=== PATIENT | male | born 1945 | race Caucasian/White ===

== ENCOUNTER 2017-12-09 08:45 | Day surgery (SDC) | payer OTHER ==
[~2017-12-09] VITALS: Ht 188 cm; Wt 86.2 kg
--- NOTE | 2017-12-09 06:31 | Anethesia Preoperative Eval ---
Anesthesia Pre-op PMH/ROS General Date of Evaluation: Dec 09, 2017 Time of Evaluation: 06:30 Anesthesiologist: deniz ASA Score: ASA 3 Mallampati Score Class I : Soft palate, uvula, fauces, pillars visible Class II: Soft palate, uvula, fauces visible Class III: Soft palate, base of uvula visible Class IV: Only hard plate visible Mallampati Classification: Class II Surgeon: eyad Diagnosis: gerd Surgical Procedure: egd Anesthesia History: none Social History: smoking - former smoker Family History: no anesthesia problems Allergies: Coded Allergies: No Known Allergies (Unverified , 12/08/17) Medications: see eMAR Past Medical History Cardiovascular: Reports: HTN Neurologic/Psychiatric: Reports: depression/anxiety HEENT: Reports: cataract (R) PSxH Narrative: appendectomy, left knee arthroscopy Anesthesia Pre-op Phys. Exam Physician Exam Constitutional: NAD Neurologic: CN 2-12 intact Cardiovascular: RRR Respiratory: CTA Gastrointestinal: S/NT/ND Airway Exam Mallampati Score: Class II MO: full Neck: flexible TMD: 2fb ROM: full Teeth: missing Anesthesia Pre-op A/P Risk Assessment & Plan Assessment: asa3 Plan: mac Status Change Before Surgery: No Pre-Antibiotics Drug: Sita Marsh MD Dec 09, 2017 06:31
[~2017-12-09 08:45] MED LIST: Atropine Inj 1mg/10ml Syr IV PRN; DiphenhydrAMINE 50mg/ml Inj IVP PRN; LR 1000ml 1,000 ML IVLG SCH; Midazolam 2mg/2ml Inj IVP PRN; fentaNYL 100 mcg/2 mL IV PRN
[2017-12-09] MEDS ORDERED: Lidocaine 1% MPF 10mg/ml 5ml ONE (09:00)
[2017-12-09] MEDS ORDERED: LR 1000ml ONE (09:00)
[2017-12-09] MEDS ORDERED: Propofol 200mg/20ml IV ONE (09:00)
--- NOTE | 2017-12-09 09:04 | Short Stay Surgery H&P ---
History of Present Illness History of Present Illness Chief Complaint History of Peptic ulcer/Upper GI bleed CLIF Maria is a 72 year old male who was admitted on for GERDS/Peptic Ulcer and history of upper GI. Bleed. Patient History Allergies: Coded Allergies: No Known Allergies (Unverified , 12/08/17) PAST MEDICAL HISTORY: (1) Hypertension (2) History of appendectomy (3) H/O left knee surgery (4) History of carpal tunnel surgery Review of Systems Cardiovascular: Reports: no symptoms Respiratory: Reports: no symptoms Skeletal: Reports: trauma Gastrointestinal: Reports: gastro esophageal reflux disease Genitourinary: Reports: no symptoms Neurologic: Reports: no symptoms Endocrine: Reports: no symptoms Hematologic: Reports: no symptoms Physical Exam Skin: normal HENT: normal Heart: normal Lungs: normal Abdomen: abnormal Extremities: normal Genitourinary: normal Plan Plan of Care Upper Gi endoscopy Preop Interventions R/O Peptic ulcer Summary of Findings See the reports Attestation Are the patient's medical conditions optimized for surgery? Attestation Response: yes Lisa Victoria MD Dec 09, 2017 09:04
--- NOTE | 2017-12-09 09:05 | Pre-Procedure Note/Attestation ---
Pre-Procedure Note/Attestation Complete Prior to Procedure Planned Procedure: left Procedure Narrative: Upper GI examination by endoscope Indications for Procedure Pre-Operative Diagnosis: R/O Peptic ulcer/gastritis Attestation I attest that I discussed the nature of the procedure; its benefits; risks and complications; and alternatives (and the risks and benefits of such alternatives ), prior to the procedure, with the patient (or the patient's legal underwriting sales representative). I attest that, if there was a reasonable possibility of needing a blood transfusion, the patient (or the patient's legal underwriting sales representative) was given the [facility] standardized written summary, pursuant to the [place] Blood Safety Act ([place] Health and Safety Code # 1645, as amended). I attest that I re-evaluated the patient just prior to the surgery and that there has been no change in the patient's H&P, except as documented below: Lisa Victoria MD Dec 09, 2017 09:05
[2017-12-09 09:18] VITALS: BP 155/87
[2017-12-09] MEDS ORDERED: LISINOPRIL2.5 MG ORAL (09:26)
--- NOTE | 2017-12-09 09:47 | Endoscopy Procedure Note ---
Endoscopy Procedure Note General Indication for Procedure: Abdominal pains, history of bleeding peptic ulcer Procedures Performed: EGD - Completely normal upper GI endoscopy as a random biopsy also obtained from gastric body. Specimen: yes Pt Tolerated Procedure Well: Yes Estimated Blood Loss: none Anesthesia Anesthesiologist: Dr. Xiao Anesthesia: moderate sedation Medications Medication Given: see anesthesia record Inserted Devices Implant(s) used?: No Quality Quality of Bowel Preparation: Excellent GI Core Measures 50 yrs or older w/o bx or poly: Not Applicable 10yrs. F/U not recommended: Not Applicable If not recommended, why?: Med reason:<3 yrs.: System Reason:<3 yrs.: Lisa Victoria MD Dec 09, 2017 09:47
--- NOTE | 2017-12-09 09:48 | Discharge Instructions ---
Discharge Instructions Discharge Instructions Follow up with: Visit the doctor in office after two weeks. For Congestive Heart Failure Reminder Report to your physician any weight gain of 5 pounds or more in one week. Lisa Victoria MD Dec 09, 2017 09:47
[2017-12-09 09:49] VITALS: BP 144/78
[2017-12-09 09:54] VITALS: BP 164/93
[2017-12-09 09:59] VITALS: BP 143/95
[2017-12-09 10:10] VITALS: BP_SYST 143; BP_SYST 161; BP_DIAS 90; BP_DIAS 95
--- NOTE | 2017-12-09 10:17 | Immediate Post-Op Evaluation ---
Immediate Post-Op Evalulation Immediate Post-Op Evalulation Procedure: egd w/bx Date of Evaluation: Dec 09, 2017 Time of Evaluation: 10:01 IV Fluids: 350ml lr Blood Products: none Estimated Blood Loss: negligible Blood Pressure Systolic: 144 Blood Pressure Diastolic: 73 Pulse Rate: 74 Respiratory Rate: 18 O2 Sat by Pulse Oximetry: 100 Temperature (Fahrenheit): 97.4 Pain Score (1-10): 0 Nausea: No Vomiting: No Complications none Patient Status: awake, reacts, patent Hydration Status: adequate Drug: Sita Marsh MD Dec 09, 2017 10:17
--- NOTE | 2017-12-09 10:19 | 48 Hour Post Anesthesia Eval ---
Post Anesthesia Evaluation Procedure: egd w/bx Date of Evaluation: Dec 09, 2017 Time of Evaluation: 10:03 Blood Pressure Systolic: 150 0: 75 Pulse Rate: 74 Respiratory Rate: 18 Temperature (Fahrenheit): 97.4 O2 Sat by Pulse Oximetry: 100 Airway: patent Nausea: No Vomiting: No Pain Intensity: 0 Hydration Status: adequate Cardiopulmonary Status: stable Mental Status/LOC: patient returned to baseline Post-Anesthesia Complications: none Follow-up care needed: N/A Sita Mcclelland MD Dec 09, 2017 10:19
[2017-12-09 10:40] VITALS: BP 152/93
--- NOTE | 2017-12-09 13:00 | Pre-op HX & Phy Repo 2 SIG ---
DATE OF ADMISSION: 12/09/2017 HISTORY OF PRESENT ILLNESS: The patient is a 72-year-old gentleman who is being seen at this time prior to undergoing the procedure for upper GI endoscopy and this evaluation is being done to evaluate the patient for being his readiness for undergoing procedure for upper GI endoscopy as it also requires anesthesia. The applicant was seen in my office approximately 5 to 6 months ago as he had been referred for evaluation of his abdominal pain as he was complaining of history of peptic ulcer disease and upper GI bleeding that he had developed subsequent to his work injury as he had been prescribed multiple medications including nonsteroidal anti-inflammatory agents. At this point, the applicant does complain of some abdominal pain, mostly upper part of the abdomen. He reports that he has been having symptoms of gastroesophageal reflux in the past, but however the major concern for this patient has been that he had upper GI bleeding for which he was hospitalized at one time and found to have peptic ulcer disease with bleeding and was treated and subsequently received another upper GI endoscopy, which revealed evidence of improvement and healing of his ulcer. As I mentioned, the applicant does have mild heartburn; however, he denies having any difficulty swallowing problems, etc. He reported to me that in the past he was taking significant numbness of medications including strong analgesics and anti-inflammatory agents. He denied having any peptic ulcer disease or bleeding or GI condition being injured at job site. 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 Also, he started to have low back pain and carpal tunnel syndrome as well. He reports that the during this job he has been doing the functional grinding the tools and sharpening them with cutting metals. PAST MEDICAL HISTORY: The applicant has had history of hypertension as I mentioned bleeding, peptic ulcer. PAST SURGICAL HISTORY: He reports that he has had the left knee surgery with bilateral carpal tunnel surgery, hiatal hernia operation, and appendectomy. ALLERGIES: None significant. HABITS: The applicant denies drinking alcohol and he does not smoke cigarettes. CURRENT MEDICATIONS: Multivitamins, Prilosec 20 mg, and losartan hydrochlorothiazide 100/25 mg once daily. REVIEW OF SYSTEMS: Basically history of present illness. He has reported to me that he does have anxiety and depression about his environmental situations at home at this time. Otherwise, he denies any chest pain, shortness of breath, cough, urinary problems, etc. PHYSICAL EXAMINATION: GENERAL: At this time reveals alert, oriented, very pleasant gentleman, does not seem to be in any acute distress. He responds adequately to questions. VITAL SIGNS: Stable. HEENT: Normocephalic. Pupils equal in size and reactive to light and accommodation. No visible jaundice. Buccal cavity, tongue midline, well hydrated. NECK: Supple. No JVD, thyromegaly, or adenopathy. CHEST: Clear to auscultation and percussion. No rales or rhonchi. HEART: S1 and S2 normal. Regular rhythm. No gallops or murmur. ABDOMEN: Soft, minimally tender at the umbilical area and the upper part of the abdomen, but not significant. Overall, there is no hepatosplenomegaly. Bowel sounds are present. No masses noted. EXTREMITIES: Unremarkable. CENTRAL NERVOUS SYSTEM: Grossly normal. SKIN AND LYMPHATICS: Nonsignificant. PRELIMINARY PREOPERATIVE IMPRESSION: 1. Abdominal pain with a history of upper gastrointestinal bleeding, rule out recurrence of peptic ulcer disease/gastritis. 2. History of bodily injury, work related. 3. Hypertension. RECOMMENDATION: At this time, the patient seems to be stable to undergo the procedure for upper GI endoscopy for which he has been scheduled. He understands the risks and benefits and will sign the consent. Said Weston Victoria DR: JOE JOB#: [id number] CC:
--- NOTE | 2017-12-09 13:00 | Operative Note - Dictated ---
DATE OF OPERATION: 12/09/2017 SURGEON: Lisa Victoria M.D. PROCEDURE: Esophagogastroduodenoscopy with biopsy. PREOPERATIVE DIAGNOSIS: History of peptic ulcer disease with bleeding/abdominal pain. POSTOPERATIVE DIAGNOSIS: Completely normal upper GI endoscopy. Biopsy was taken per random from gastric body. MEDICATION USED: Per Dr. Xiao, anesthesiologist. INSTRUMENT: GIF Olympus upper GI video endoscope. DESCRIPTION OF PROCEDURE: The patient after arriving in the endoscopy unit, was told about risks and benefits of the procedure, which he accepted and signed informed consent. At this point, he was put on the left lateral decubitus position. After adequate IV sedation, the scope was gently passed through the cricopharyngeal area, was lodged into the upper esophagus and gradually advanced towards gastroesophageal junction. The entire length of the esophagus looked normal. The GE junction also looked completely normal without any evidence of hiatal hernia or Nair's. The scope was then guided into the stomach. Gastric cavity was distended with insufflation of air. The areas of the fundus and the body and the antrum were examined in saw edge fuser circular fashion, which revealed basically normal mucosal findings with no any evidence of ulceration, bleeding site, hemangiomas, inflammatory process, polyps, tumors, etc. A retroflexion maneuver was also applied and the area of the gastroesophageal junction was examined in a closer fashion, which also looked normal. After obtaining the random biopsy from gastric body, the scope was gradually passed through the antrum, pylorus. First and second portion of duodenum were found to be completely normal. At this time, the scope was pulled out and the procedure was terminated. The patient tolerated the procedure well and left the endoscopy room in a good condition. Lisa Victoria M.D. DR: MOE JOB#: [id number] CC:
== END 2017-12-09 11:00 | disposition home or self-care (01) ==
LOC: GAS 08:45
DX: K29.50 Unspecified chronic gastritis without bleeding (principal); I10 Essential (primary) hypertension; F32.9 Major depressive disorder, single episode, unspecified; F41.9 Anxiety disorder, unspecified; Z87.891 Personal history of nicotine dependence; Z90.49 Acquired absence of other specified parts of digestive tract
CPT/HCPCS: 43239; J0360; J2704; 94003; 94150